=== PATIENT | female | born 1995 | race Native Hawaiian/Other Pacific Islander ===

== ENCOUNTER 2022-03-12 17:43 | Day surgery (SDC) | payer MEDICAID, SELFPAY ==
[2022-03-12] VITALS (48 sets, daily range): BP systolic 91–133; BP diastolic 22–106; PULSE 16–150; RESP 16–20; TEMP 35.9–37.3; O2SAT 65–100; BMI 37.8
--- NOTE | 2022-03-12 17:54 | ED.GENADULT ---
HPI - General Adult General Time Seen by Provider: 17:54 Date Seen: 03/12/22 Chief complaint: Vaginal Bleeding Stated complaint: Miscarriage 11-12 Wk Time Seen by Provider: 03/12/22 17:50 Source: patient and RN notes reviewed Mode of arrival: ambulatory Limitations: no limitations History of Present Illness HPI narrative: Patient is a 27-year-old female coming in with significant vaginal bleeding from a miscarriage. She states on February 17 she had an ultrasound and there was no heart tones. She states she was told she had to wait for the fetus to pass. She did start spotting someone Stra[place]. She has had some ongoing spotting. Today she went to work around 4:00 a.m., around 5:00 a.m. at work started to bleed heavy. She has bled through too close. She is bleeding through all of her pads. Nursing staff called me into the room and she is bleeding through her clothes, there is clot on the floor that falls when she takes her clothes off, probably at least 100 mL clot by appearance. She is tearful and crying. She has been a total of 3 times, has 1 living child, 1 prior miscarriage at about 7 weeks. 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 She is not aware that she has ever had to have RhoGAM. She is feeling significant cramping with this. No fevers. Related Data Home Medications Medication Instructions Recorded Confirmed No Known Home Medications 03/12/22 03/12/22 Allergies Allergy/AdvReac Type Severity Reaction Status Date / Time No Known Drug Allergies Allergy Verified 03/12/22 18:01 Review of Systems Status of ROS: Reports: 10 or more systems reviewed and unremarkable except as noted in History and below [facility] Medical History (Updated 03/12/22 @ 19:13 by Nguyen Womack MD) Carpal tunnel syndrome of left wrist Surgical History (Updated 03/12/22 @ 19:04 by Nguyen Womack MD) History of appendectomy Social History Smoking Status: Never smoker Do you use any of these nicotine containing products: None Second hand tobacco smoke exposure: No How often do you have a drink containing alcohol: never How often do you have six or more drinks on one occasion: Never AUDIT-C Alcohol total score: 0 Non-prescribed substance use: denies use service: No Exam Const: Vital Signs, click to edit/add: Vital Signs - 24 hr 03/12/22 17:57 03/12/22 17:51 03/12/22 18:02 Temperature 96.7 F L Pulse Rate 149 H Pulse Rate [Left P ulse Oximeter] 150 H Respiratory Rate 18 Blood Pressure 116/86 Blood Pressure [Le ft Upper Arm] 122/83 Pulse Oximetry 97 98 96 Oxygen Delivery Me thod Room Air Oxygen Flow Rate 03/12/22 18:03 03/12/22 18:28 03/12/22 18:29 Temperature Pulse Rate 144 H 126 H 104 H Pulse Rate [Left P ulse Oximeter] Respiratory Rate Blood Pressure 95/57 L Blood Pressure [Le ft Upper Arm] Pulse Oximetry 96 100 99 Oxygen Delivery Me thod Oxygen Flow Rate 03/12/22 18:31 03/12/22 18:32 03/12/22 18:33 Temperature Pulse Rate 119 H 115 H 130 H Pulse Rate [Left P ulse Oximeter] Respiratory Rate Blood Pressure 107/22 L 108/62 Blood Pressure [Le ft Upper Arm] Pulse Oximetry 100 100 99 Oxygen Delivery Me thod Oxygen Flow Rate 03/12/22 18:37 03/12/22 18:38 03/12/22 18:42 Temperature Pulse Rate 126 H 117 H 103 H Pulse Rate [Left P ulse Oximeter] Respiratory Rate Blood Pressure 108/78 102/77 114/98 H Blood Pressure [Le ft Upper Arm] Pulse Oximetry 100 100 100 Oxygen Delivery Me thod Oxygen Flow Rate 03/12/22 18:00 03/12/22 18:43 03/12/22 18:45 Temperature Pulse Rate 113 H 104 H Pulse Rate [Left P ulse Oximeter] Respiratory Rate Blood Pressure Blood Pressure [Le ft Upper Arm] Pulse Oximetry 100 99 97 Oxygen Delivery Me thod Nasal Cannula Nasal Cannula Nasal Cannula Oxygen Flow Rate 2 2 2 03/12/22 18:47 03/12/22 18:48 03/12/22 18:52 Temperature Pulse Rate 122 H 106 H 103 H Pulse Rate [Left P ulse Oximeter] Respiratory Rate Blood Pressure 126/68 133/106 H Blood Pressure [Le ft Upper Arm] Pulse Oximetry 100 100 100 Oxygen Delivery Me thod Nasal Cannula Nasal Cannula Oxygen Flow Rate 2 2 03/12/22 18:53 03/12/22 18:57 03/12/22 19:00 Temperature Pulse Rate 110 H 100 95 Pulse Rate [Left P ulse Oximeter] Respiratory Rate Blood Pressure 126/73 Blood Pressure [Le ft Upper Arm] Pulse Oximetry 100 100 100 Oxygen Delivery Me thod Nasal Cannula Nasal Cannula Nasal Cannula Oxygen Flow Rate 2 2 2 03/12/22 19:02 03/12/22 19:03 03/12/22 19:07 Temperature Pulse Rate 107 H 108 H 105 H Pulse Rate [Left P ulse Oximeter] Respiratory Rate Blood Pressure 127/78 125/80 Blood Pressure [Le ft Upper Arm] Pulse Oximetry 100 100 100 Oxygen Delivery Me thod Nasal Cannula Nasal Cannula Room Air Oxygen Flow Rate 2 2 03/12/22 19:12 03/12/22 19:13 03/12/22 19:15 Temperature Pulse Rate 108 H 101 H 96 Pulse Rate [Left P ulse Oximeter] Respiratory Rate Blood Pressure 117/72 Blood Pressure [Le ft Upper Arm] Pulse Oximetry 100 98 99 Oxygen Delivery Me thod Room Air Room Air Room Air Oxygen Flow Rate 03/12/22 19:16 03/12/22 19:17 03/12/22 19:22 Temperature Pulse Rate 102 H 115 H 105 H Pulse Rate [Left P ulse Oximeter] Respiratory Rate Blood Pressure 117/75 115/72 Blood Pressure [Le ft Upper Arm] Pulse Oximetry 98 98 99 Oxygen Delivery Me thod Room Air Room Air Room Air Oxygen Flow Rate Documenting provider has reviewed patient's vital signs: yes Common normals: average body habitus, oriented x3, no limitations and alert General appearance: cooperative, well developed, in distress (Is definitely anxious, tearful and on in moderate emotional distress ) moderate and anxious Nutritional appearance: overweight HENMT: Common normals: normocephalic, head/scalp atraumatic and hearing grossly normal bilaterally Head and scalp: normocephalic and atraumatic Eye: Common normals: PERRL, EOMs intact bilaterally, conjunctivae normal and no scleral icterus Conjunctiva: conjunctiva(e) normal Pupil: PERRL Neck & C-Spine: Common normals: full ROM, no lymphadenopathy, supple, no meningeal signs, no JVD and thyroid normal Thyroid: thyroid normal Resp: Common normals: normal respiratory effort, no retractions, no use of accessory muscles and clear to auscultation bilaterally Auscultation: clear to auscultation bilaterally Cardio: Common normals: no JVD, regular rhythm, S1 normal heart sound, S2 normal heart sound, no gallops, no clicks and no murmurs Rate: tachycardic Rhythm: regular rhythm Heart sounds: S1 normal and S2 normal GI: Common normals: Normal to inspection, nondistended, normoactive bowel sounds present, soft to palpation, non-tender, no hepatosplenomegaly and no masses Palpation: soft and no hepatosplenomegaly Neuro: Common normals: oriented x3 Sensorium/orientation: alert Meningeal signs: no meningeal signs Course Course Hospital Course: Will establish 2 IVs, get a L of fluids going. Have gotten appropriate labs including quantitative HCG, blood type as well as type and screen. Did let Dr. Colon know about this patient. She would like us to get an ultrasound. If there is still gestational sac within the uterus, may very well likely need a D&C. Otherwise, if everything has evacuated, may be able to observe her through some initial bleeding. If the contents of the uterus have passed, patient may not need intervention possibly. Reevaluation(s) Reevaluation #1: While patient was in ultrasound, started feeling lightheaded like she was going to pass out. Went over to ultrasound to guide her back here to the ED. 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 She states she did pass a large clot will over there. On arrival back over here, pulse was in the 120s to 130s, blood pressure was 90s over 59. She was having significant pelvic cramping. She was starting to states she could not hear us. She was also hyperventilating at the time. We did start a 2 L of IV fluids, did order transxemic acid [address] Kahn immediately and had the tank house supervisor call in the OR crew. I would like them here standby at least. I feel that this patient may very well need a D&C but ultimately need to defer to the expertise of the performance tester. I am going to give her fentanyl 25 mcg IV for some pain management. Seems the pain is stemming some of her discomfort in her crying. She stating she just does not feel right. Time: 18:34 Reevaluation #2: OB in anesthesia or here to evaluate patient. There does seem to be retained products of conception. At this time she is not actively bleeding but is still having significant cramping. Plan will be to go to the OR for a D&C. From my standpoint, she is clear for trial of anesthesia for this emergent procedure. Time: 19:10 Vital Signs Vital signs: Initial Vital Signs Pulse Oximetry 98 03/12/22 17:51 Vital Signs Pulse Oximetry 98 03/12/22 17:51 Temperature 96.7 F L 03/12/22 17:57 Pulse Rate 105 H 03/12/22 19:22 Respiratory Rate 18 03/12/22 17:57 Blood Pressure 115/72 03/12/22 19:22 Pulse Oximetry 99 03/12/22 19:22 Oxygen Delivery Method 03/12/22 19:22 Oxygen Flow Rate 2 03/12/22 19:03 Medical Decision Making Lab Data Lab results reviewed: Yes I reviewed the patient's lab results Labs: Lab Results 03/12/22 03/12/22 03/12/22 Range/Units 17:55 17:55 17:55 WBC 18.63 H (4.50-11.00) K/uL RBC 4.15 (4.00-5.20) m/uL Hgb 12.3 (12.0-16.0) gm/dL Hct 36.8 (33.0-51.0) % MCV 89 (80-100) fL MCH 30 (26-34) pg MCHC 33 (32-36) gm/dL RDW Coeff of Malvin 13.0 (11.5-15.5) % Plt Count 374 (140-440) K/uL Neut % (Auto) 76.7 H (42.0-72.0) % Lymph % (Auto) 18.5 L (20-44) % [place] % (Auto) 2.9 (0.0-11.0) % Eos % (Auto) 1.6 (0.0-7.0) % Baso % (Auto) 0.2 (0.0-3.0) % Neut # (Auto) 14.30 H (1.7-7.0) K/uL Lymph # (Auto) 3.40 H (0.90-2.90) K/uL [place] # (Auto) 0.50 (0.00-0.90) K/UL Eos # (Auto) 0.30 (0.00-0.50) K/uL Baso # (Auto) 0.00 (0.00-0.30) K/uL Sodium 141 (135-149) mmol/L Potassium 3.4 L (3.6-5.1) mmol/L Chloride 108 (96-114) mmol/L Carbon Dioxide 22 (20-32) mmol/L BUN 12 (5-24) mg/dL Creatinine 0.8 (0.5-1.5) mg/dL Estimated Creat Clear 90.41 Estimated GFR 103 ml/min Glucose 169 H (60-115) mg/dL Calcium 9.1 (8.4-10.6) mg/dL HCG, Quant 1030.30 mIU/mL SARS-CoV-2 (PCR) (Negative) Blood Type O Positive Antibody Screen NEGATIVE 03/12/22 Range/Units 18:08 WBC (4.50-11.00) K/uL RBC (4.00-5.20) m/uL Hgb (12.0-16.0) gm/dL Hct (33.0-51.0) % MCV (80-100) fL MCH (26-34) pg MCHC (32-36) gm/dL RDW Coeff of Malvin (11.5-15.5) % Plt Count (140-440) K/uL Neut % (Auto) (42.0-72.0) % Lymph % (Auto) (20-44) % [place] % (Auto) (0.0-11.0) % Eos % (Auto) (0.0-7.0) % Baso % (Auto) (0.0-3.0) % Neut # (Auto) (1.7-7.0) K/uL Lymph # (Auto) (0.90-2.90) K/uL [place] # (Auto) (0.00-0.90) K/UL Eos # (Auto) (0.00-0.50) K/uL Baso # (Auto) (0.00-0.30) K/uL Sodium (135-149) mmol/L Potassium (3.6-5.1) mmol/L Chloride (96-114) mmol/L Carbon Dioxide (20-32) mmol/L BUN (5-24) mg/dL Creatinine (0.5-1.5) mg/dL Estimated Creat Clear Estimated GFR ml/min Glucose (60-115) mg/dL Calcium (8.4-10.6) mg/dL HCG, Quant mIU/mL SARS-CoV-2 (PCR) Negative SARS-CoV-2 (Negative) Blood Type Antibody Screen Imaging Data Limited ultrasound OB: Attestation: I have reviewed the pertinent imaging results. My impression: Did look at preliminary images with the performance tester here. Can see retained products in the uterus. Will await Radiology over-read. Radiologist's impression: Patient: KRISTINE MENJIVAR Facility:?[facility] Patient ID:?[id number] :?[id number] Study:?US OB Pelvis -03/12/2022 6:35:54 PM Ordering Physician:Shellie Cedillo Final Report: INDICATION: Heavy bleeding/abdominal pain.. TECHNIQUE: Ultrasound pelvis transabdominal and transvaginal for better assessment or to better visualize the endometrium. Real-time sonographic images with spectral and color Doppler imaging of the ovaries were obtained. COMPARISON: None. FINDINGS: Bulky uterus. Normal echotexture of the myometrium. No masses. Endometrium: Transvaginal imaging was performed to better evaluate the endometrium. Heterogeneous endometrium with few cystic areas. Right ovary 3.6 x 2.3 x 1.9 centimeters. Left ovary 3.8 x 1.9 x 1.7 centimeters. No ovarian or adnexal masses. Normal arterial and venous blood flow is demonstrated in both ovaries. Cul-de-sac: No significant free fluid. IMPRESSION: Limited evaluation as only transabdominal imaging was performed secondary to patient factors. Heterogeneous endometrium with few cystic areas, possibly retained products of conception given clinical history. Normal ovaries for age. Case discussed with Dr. Castellanos at 525 PM on 03/12/22. Dictated by Steven Nguyen MD @ 03/12/2022 7:08:21 PM (Electronic Signature) Critical Care Time Critical Care Time Critical Care Time: Yes Attestation: The patient required my highest level preparedness to intervene emergently and I personally spent this critical care time directly and personally managing the patient. This critical care time included: Obtaining a history; Examining the patient; Pulse oximetry; Ordering and reviewing of studies; Arranging urgent treatment with development of a management plan; Evaluation of patients response to treatment; Frequent reassessment discussions with other providers. This critical care time was performed to assess and manage the high probability of imminent life-threatening deterioration that could result in multiorgan failure. It was exclusive of separate billable procedures and treating other patients and teaching time. Total Critical Care Time in Minutes: 40 Discharge Plan Discharge Clinical Impression: Incomplete spontaneous complicated by delayed or excessive hemorrhage Patient Disposition: Admitted As Inpatient Condition: Unchanged
[2022-03-12] MEDS: 0.9 % SODIUM CHLORIDE 1000 ml 1,000 ML IV ×2 (17:55→18:13)
--- NOTE | 2022-03-12 17:58 | CRLHL7_ITS ---
For Patients: As a result of the Century Cures Act, medical imaging exams and procedure reports are released immediately into your electronic medical record. You may view this report before your referring provider. If you have questions, please contact your health care provider. INDICATION: Heavy bleeding/abdominal pain.. TECHNIQUE: Ultrasound pelvis transabdominal and transvaginal for better assessment or to better visualize the endometrium. Real-time sonographic images with spectral and color Doppler imaging of the ovaries were obtained. COMPARISON: None. FINDINGS: Bulky uterus. Normal echotexture of the myometrium. No masses. Endometrium: Transvaginal imaging was performed to better evaluate the endometrium. Heterogeneous endometrium with few cystic areas. Right ovary 3.6 x 2.3 x 1.9 centimeters. Left ovary 3.8 x 1.9 x 1.7 centimeters. No ovarian or adnexal masses. Normal arterial and venous blood flow is demonstrated in both ovaries. Cul-de-sac: No significant free fluid. IMPRESSION: Limited evaluation as only transabdominal imaging was performed secondary to patient factors. Heterogeneous endometrium with few cystic areas, possibly retained products of conception given clinical history. Normal ovaries for age. Case discussed with Dr. Castellanos at 525 PM on 03/12/22. Dictated by Steven Nguyen MD @ 03/12/2022 7:08:21 PM (Electronically Signed)
--- NOTE | 2022-03-12 18:00 | ED.NURSE ---
Received call from [place] stating she needed some assistance with the patient during the exam. Gastroenterologist observed patient to be pale, cool and clammy. Pt stated she was nauseous and having extreme pain with the pain climbing up to her neck/ears. I assisted patient back into wheel chair. Dr prabhakar was called to the exam room to assess patient. Patient had 1L on the pump which was removed and pressure applied to bag. Patient was brought back over to the ER room where a second L was hung with pressure bag. Dr Prabhakar remained at bedside
[2022-03-12 18:12] LABS: Basophils Percent Auto 0.2 % (0.0-3.0); Eosinophils Percent Auto 1.6 % (0.0-7.0); Hematocrit 36.8 % (33.0-51.0); Hemoglobin* 12.3 gm/dL (12.0-16.0); Immature Granulocytes Pct Auto 0.1 %; Lymphocytes Percent Auto 18.5 % (20-44); Mean Corpuscular HGB Conc 33 gm/dL (32-36); Mean Corpuscular Hemoglobin 30 pg (26-34); Mean Corpuscular Volume 89 fL (80-100); Monocytes Percent Auto 2.9 % (0.0-11.0); Neutrophils Percent Auto 76.7 % (42.0-72.0); Platelet Count* 374 K/uL (140-440); Red Blood Count 4.15 m/uL (4.00-5.20); White Blood Count* 18.63 K/uL (4.50-11.00)
[2022-03-12 18:18] LABS: Slide Review Reflex No
[2022-03-12 18:25] LABS: Chloride* 108 mmol/L (96-114); Potassium* 3.4 mmol/L (3.6-5.1); Sodium* 141 mmol/L (135-149)
[2022-03-12 18:28] LABS: Blood Urea Nitrogen* 12 mg/dL (5-24); Carbon Dioxide* 22 mmol/L (20-32); Creatinine* 0.8 mg/dL (0.5-1.5); Est. Creatinine Clearance* 90.41; Estimated Glomerular Filt Rate 103 ml/min
[2022-03-12 18:29] LABS: Calcium* 9.1 mg/dL (8.4-10.6); Glucose* 169 mg/dL (60-115)
[2022-03-12] MEDS: fentaNYL 100 MCG/2 ML inj 25 MCG IVP (18:39)
[2022-03-12] MEDS: TRANEXAMIC ACID 100 MG/ML INJ 1000 MG IV (18:39)
[2022-03-12 18:47] LABS: SARS PCR* Negative SARS-CoV-2 (Negative)
--- NOTE | 2022-03-12 19:13 | ED.NURSE ---
Pt O2 satting at 100%, supplemental O2 DC'd. Continues to sat at 100%.
[2022-03-12] MEDS: LACTATED RINGERS 1000 ML 1,000 ML 100 ML IV ×2 (19:28→20:00)
[2022-03-12] MEDS: CEFAZOLIN 2 GM INJ IVP (19:38)
[2022-03-12] MEDS: BUPIVACAINE 0.25% 30 ML 10 ML INJECTION (19:50)
[2022-03-12] MEDS: LIDOCAINE 1 % PF 30 ML 10 ML INJECTION (19:50)
--- NOTE | 2022-03-12 20:17 | PM.GYNCN1 ---
SIGNAL MAINTAINER HELPER - CN: HPI Data of Consult Date Seen: 03/12/22 Patient: Olivia Patient (Olivia Loera) Consult date: 03/12/22 Requesting Physician: Nguyen Prabhakar MD Primary Care Provider: Radha Kahn MD Family Provider: Dr. Pitts Consult Narrative Reason for consult: vaginal bleeding Narrative: Eva Fuller is a 27 year old female presented to the emergency department with active vaginal bleeding and severe lower cramping. She is a patient Dr. Pitts, family provider at the [facility] in [place], [place]. She had been found to have a nonviable by ultrasound on 02/17/2022. Expectant management was recommended. A follow-up ultrasound was done on 02/27/2022 that still showed an intrauterine gestational sac and pole without heart motion. Expectant management was again recommended. The patient states that she started experiencing cramping in the low abdomen, much worse than menstrual cramping, this morning. She went to work at about 4:00 p.m., and at about 5:00 p.m. started having profuse vaginal bleeding, saturating at least 3 pads before arrival at the hospital. She drove herself to the [facility], as she works in [place]. She was found to be actively bleeding from the vagina. She described lightheadedness in addition to the pain. She was tachycardic and becoming increasingly hypotensive. An ultrasound demonstrated a moderate amount of blood in clots and possibly a small gestational sac still within the endometrial cavity. The patient's obstetric history is significant for 1 term vaginal delivery and 1 spontaneous early miscarriage at 7 weeks gestation for which she did not need surgery. She denies history of gestational diabetes or gestational hypertension. The patient's last menstrual period began about 12 weeks ago. Past surgical history is significant for an appendectomy and a carpal tunnel release. No difficulty with anesthesia. No history of bleeding or clotting disorder. cc:: CC: Radha Kahn MD Review of Systems Status of ROS: Reports: 10 or more systems reviewed and unremarkable except as noted in History and below Const: Denies: fever Cardio: Denies: shortness of breath with exertion Resp: Denies: shortness of breath GI: Reports: abdominal pain (Low mid abdomen with radiation to the back) Musculo: Reports: back pain PFSH PFSH Medical History Carpal tunnel syndrome of left wrist Surgical History History of appendectomy Social History Smoking Status: Never smoker Do you use any of these nicotine containing products: None Second hand tobacco smoke exposure: No How often do you have a drink containing alcohol: never How often do you have six or more drinks on one occasion: Never AUDIT-C Alcohol total score: 0 Non-prescribed substance use: denies use service: No Meds Home Medications and Allergies Home Medications Medication Instructions Recorded Confirmed Type No Known Home Medications 03/12/22 03/12/22 History Allergies Allergy/AdvReac Type Severity Reaction Status Date / Time No Known Drug Allergies Allergy Verified 03/12/22 18:01 SIGNAL MAINTAINER HELPER - Exam Physical Exam: Vital signs: Temp Pulse Resp BP Pulse Ox O2 Del Method O2 Flow Rate 96.7 F L 105 H 18 115/72 99 2 03/12/22 17:57 03/12/22 19:22 03/12/22 17:57 03/12/22 19:22 03/12/22 19:22 03/12/22 19:22 03/12/22 19:03 Constitutional: Constitutional: moderate distress Routine HEENT Exam: Head: Present normal inspection Routine Respiratory Exam: Respiratory: Absent respiratory distress Routine Abdominal Exam: Abdominal: Absent tenderness Routine Exam: Patient deferred: external exam (Normal external anatomy, blood on the perineum) Comments: Large amount of blood and clot within the vagina extruding from the cervical os, which is visibly open. Routine Extremities Exam: Extremities: Present normal inspection Detailed Psychiatric Exam: Mood and affect: Present tearful SIGNAL MAINTAINER HELPER - Results Labs Labs: Short CBC 03/12/22 Range/Units 17:55 WBC 18.63 H (4.50-11.00) K/uL Hgb 12.3 (12.0-16.0) gm/dL Hct 36.8 (33.0-51.0) % Plt Count 374 (140-440) K/uL BMP 03/12/22 17:55 Sodium 141 Potassium 3.4 L Chloride 108 Carbon Dioxide 22 BUN 12 Creatinine 0.8 Glucose 169 H Calcium 9.1 Assessment and Plan Assessment and plan (1) Incomplete spontaneous complicated by delayed or excessive hemorrhage: Status: Acute Plan The patient and I discussed her ultrasound findings and clinical situation. I recommend suction curettage to treat the excessive bleeding, which is likely due to retained products of conception. Informed consent for suction curettage under general anesthesia was obtained. The OR crew was notified. Patient is O positive blood type, RhoGAM will not be needed. She has a slightly elevated white count, so we will plan to administer intraoperative antibiotics. Assuming that her condition is stable following surgery, she can be discharged to home as long as she has of ride from the hospital. She understands that she will need to make arrangements to obtain her car tomorrow.
[2022-03-12] MEDS: METOCLOPRAMIDE HCL 5 MG/ML INJ 10 MG IVP (20:27)
--- NOTE | 2022-03-12 20:33 | W.ANESCHARGE ---
Anesthesia Charges Start Date/Time Anesthesia Start Date: 03/12/22 Anesthesia Start Time: 19:28 Stop Date/Time Anesthesia Stop Date: 03/12/22 Anesthesia Stop Time: 20:27 Summary Emergency: Yes
--- NOTE | 2022-03-12 20:39 | P.GYNPRC_ITS ---
Procedure Note Date Seen: 03/12/22 Procedure Details: PREOPERATIVE DIAGNOSIS: Missed with acute hemorrhage. POSTOPERATIVE DIAGNOSIS: Missed with acute hemorrhage. PROCEDURE: Suction curettage. SURGEON: Femi. ANESTHESIA: Monitored anesthesia care and paracervical block. COMPLICATIONS: None. ESTIMATED BLOOD LOSS: 45 mL intraoperatively. FINDINGS: Large amount of blood and clot in the vagina, extruding from the cervical os. Moderate amount of products of conception within the uterus. PROCEDURE NOTE: After obtaining informed consent, the patient was taken to the operating room where general anesthesia was obtained without difficulty. She was prepared and draped in the normal, sterile fashion in the dorsal lithotomy position. Two g of IV Ancef was administered intravenously. An examination was performed under anesthesia which demonstrated a normal sized anteverted uterus. An open-sided bivalve speculum was placed into the vagina and the cervix easily visualized. The anterior lip of the cervix was grasped with a single-tooth tenaculum for traction. A paracervical block was administered using a total of 20 mL of a 50:50 mixture of 1% lidocaine and 0.25% Marcaine, plain. A sound was gently inserted through the cervical os into the uterus to the level of the fundus. Sound length was 11.5 cm. The cervix was already passively dilated to a #12 Hegar dilator. A 12 mm rigid, curved suction cannula was advanced through the cervical os into the uterine cavity. Gentle suction was applied, and the uterine lining gently curetted. A moderate amount of products of conception and blood was removed. The suction cannula was removed. The uterine lining was gent ly explored using a sharp curette, and a gritty feel was felt throughout. One final pass was made with the suction cannula, no further tissue was recovered. All instruments were then removed. The patient tolerated the procedure well. Sponge, lap, and needle counts were reported as correct x2. The patient was taken to the recovery room awake and in stable condition. PATHOLOGY SPECIMEN(S): Products of conception.
[2022-03-12] MEDS: LACTATED RINGERS 1000 ML 1,000 ML 35 ML IV (20:56)
--- NOTE | 2022-03-12 21:05 | SUR.PHASEI ---
D) PT. C/O NAUSEA. I) ADMINISTER REGLAN - SEE EMAR A) NAUSEA BETTER P) CONTINUE TO MONITOR PT. COMFORT LEVEL AND TREAT PER ORDERS.
[2022-03-12] MEDS: HYDROCODONE/ACETAMIN 7.5-325 TABLET 1 TAB PO (22:23)
== END 2022-03-12 23:55 | disposition home or self-care (01) ==
LOC: ED 19:07 → SS 19:07 → MEDSURG 03-21 17:41
PROVIDERS: Emergency Provider Family Medicine; PCP Obstetrics & Gynecology; Visit Provider Obstetrics & Gynecology
PROC: (CPT 59812; principal; 2022-03-12 20:00)
DX: O03.1 Delayed or excessive hemorrhage following incomplete spontaneous abortion (principal)
CPT/HCPCS: 59812; 00940; 36415; 76815; 80048; 84702; 85025; 86850; 86900; 86901; 87635; 94761; 99140; 99284; 99291; A9270; J0330; J0690; J1100; J1885; J2001; J2250; J2405; J2704; J2765; J3010; J3490; J7030; J7120